=== PATIENT | male | born 1995 | race Caucasian/White ===

== ENCOUNTER 2017-03-11 05:12 | Emergency (ER) | payer BC ==
--- NOTE | 2017-03-11 05:36 | EDM.PDOC ---
ED HPI GENERAL MEDICAL PROBLEM - General Chief Complaint: ENT Problem Stated Complaint: FEVER/SORE THROAT Time Seen by Provider: 03/11/17 05:19 - History of Present Illness INITIAL COMMENTS - FREE TEXT/NARRATIVE: 21-year-old male presents emergency room with a sore throat and fever. Yesterday the patient developed some aches and pains in his lower extremities. This last evening he developed a sore throat and awoke this morning with a fever. The patient is not aware of any recent exposures to strep or influenza. However, the patient is a college student. He is home for the holiday visiting he is not sure how high his fever is been at home he just felt warm. The patient has not had any difficulty swallowing or clearing his oral secretions. He has not had any ear pain or nasal congestion. No significant cough. Throat Pain Score (Numeric/FACES): 7 - Related Data Allergies Allergy/AdvReac Type Severity Reaction Status Date / Time No Known Allergies Allergy Verified 03/11/17 05:21 Home Meds: Home Meds . [No Known Home Meds] 03/11/17 [History] Social & Family History - Tobacco Use Second Hand Smoke Exposure: No - Alcohol Use Days Per Week of Alcohol Use: 0 - Recreational Drug Use Recreational Drug Use: No ED ROS ENT - Review of Systems Review Of Systems: See Below Constitutional: Reports: Fever. Denies: Night Sweats HEENT: Denies: Ear Pain, Sinus Problem, Throat Swelling Respiratory: Reports: No Symptoms Cardiovascular: Reports: No Symptoms GI/Abdominal: Reports: No Symptoms Musculoskeletal: Reports: Other (He has had some extra Dermody achiness otherwise no complaints) Skin: Reports: No Symptoms Neurological: Reports: No Symptoms ED EXAM, ENT - Physical Exam Exam: See Below Exam Limited By: No Limitations General Appearance: Alert, No Apparent Distress Eye Exam: Bilateral Eye: Normal Inspection, PERRL Ears: Normal External Exam, Normal Canal, Hearing Grossly Normal, Normal TMs, Other (Some cerumen in the external canals) Nose: Normal Inspection, Normal Mucousa, No Blood Mouth/Throat: Normal Gums, Normal Lips, Normal Teeth, Other (He has some erythema in the posterior pharynx no exudate noted) Head: Atraumatic, Normocephalic Neck: Normal Inspection, Supple, Non-Tender, Full Range of Motion. No: Lymphadenopathy (L), Lymphadenopathy (R) Respiratory/Chest: No Respiratory Distress, Lungs Clear, Normal Breath Sounds Cardiovascular: Regular Rate, Rhythm, No Edema, No Murmur Course - Vital Signs Last Recorded V/S: Last Vital Signs Temp 37.7 C 03/11/17 05:19 Pulse 125 H 03/11/17 05:19 Resp 16 03/11/17 05:19 BP 154/84 H 03/11/17 05:19 Pulse Ox 96 03/11/17 05:19 - Orders/Labs/Meds Orders: Active Orders 24 hr Category Date Time Status CULTURE STREP A CONFIRMATION [RM] Stat Lab 03/11/17 05:28 Results STREP SCRN A RAPID W CULT CONF [RM] Stat Lab 03/11/17 05:28 Results - Re-Assessments/Exams Free Text/Narrative Re-Assessment/Exam: 03/11/17 06:14 Rapid testing for group A strep is negative influenza testing for and B is negative Departure - Departure Time of Disposition: 06:14 Disposition: Home, Self-Care 01 Clinical Impression: Pharyngitis, Viral illness - Discharge Information Referrals: Tim Esquivel MD [Primary Care Provider] - Forms: ED Department Discharge Additional Instructions: Return to the emergency room with any questions problems worsening symptoms. Push lots of fluids in addition to a regular diet. Motrin or Aleve as needed for aches and pains. If this causes stomach upset, consider using Tylenol. Follow-up with your regular provider on Wednesday or Wednesday if needed. - My Orders Last 24 Hours: My Active Orders 03/11/17 05:28 CULTURE STREP A CONFIRMATION [RM] Stat STREP SCRN A RAPID W CULT CONF [RM] Stat - Assessment/Plan Last 24 Hours: My Active Orders 03/11/17 05:28 CULTURE STREP A CONFIRMATION [RM] Stat STREP SCRN A RAPID W CULT CONF [RM] Stat
== END 2017-03-11 06:20 | disposition home or self-care (01) ==
LOC: JD.ED 05:12
DX: J02.9 Acute pharyngitis, unspecified (principal); B34.9 Viral infection, unspecified
CPT/HCPCS: 87081; 87430; 87804; 99282; 99283